=== PATIENT | male | born 1995 | race African-American/Black ===

== ENCOUNTER 2021-10-21 10:50 | Emergency (ER) | payer OTHER ==
[2021-10-21 11:07] VITALS: BP 133/76; PULSE 71; TEMP 98.9; BMI 26.4
[2021-10-21] MEDS ORDERED: IBUPROFEN 400 MG TABLET (FP) PO ONE ×2 (11:35→11:51)
[2021-10-22 08:06] LABS: SARS-CoV-2 NAA Not Detected (Not Detected)
== END 2021-10-21 12:33 | disposition home or self-care (01) ==
LOC: JER 10:50
DX: J02.9 Acute pharyngitis, unspecified (principal); R51.9 Headache, unspecified
CPT/HCPCS: 99283-25; C9803-CS; U0003; U0005